=== PATIENT | female | born 1955 ===

== ENCOUNTER 2020-10-21 16:40 | Inpatient (IN) | payer OTHER ==
[~2020-10-21] VITALS: Ht 172.7 cm; Wt 154.8 kg
[2020-10-21] VITALS (12 sets, daily range): BP systolic 83–131; BP diastolic 32–89; BMI 51.9
[2020-10-21] MEDS ORDERED: COREG12.5 MG PO (17:42)
[2020-10-21] MEDS ORDERED: LASIX40 MG PO (17:43)
[2020-10-21] MEDS ORDERED: ELIQUIS5 MG PO (17:43)
[2020-10-21] MEDS ORDERED: LOTREL 5/10 MG1 CAP PO (17:44)
[2020-10-21] MEDS ORDERED: POTASSIUM CHLO10 ME1 PO (17:44)
[2020-10-21 18:36] LABS: BASOPHILS 0.1 % (0-2); EOSINOPHILS 0 % (0-7); HEMATOCRIT 35.9 % (36.0-48.0); HEMOGLOBIN 11.7 g/dL (12-16); LYMPHOCYTES 1.4 % (15-50); MCH 29.4 pg (26.0-34.0); MCHC 32.6 g/dL (31.0-37.0); MCV 90.2 fL (80.0-100.0); MEAN PLATELET VOLUME 7.5 fL (7.4-10.4); MONOCYTES 7.2 % (2-11); NEUTROPHILS 91.3 % (40-80); PLATELET COUNT 220 10x3/uL (130-400); RBC 3.98 10x6/uL (4.00-5.40); RDW 14.3 % (11.5-14.5); WBC 12.1 10x3/uL (4.8-10.8)
[2020-10-21 18:48] LABS: CALC OSMOLALITY 291 mosm/kg (275-300); CALCIUM 7.8 mg/dL (8.5-10.1); CARBON DIOXIDE 28.9 mmol/L (21.0-32.0); CHLORIDE - SERUM 106 mmol/L (98-107); CREATININE - SERUM 0.7 mg/dL (0.6-1.3); GLUCOSE 204 mg/dL (74-106); POTASSIUM - SERUM 5.5 mmol/L (3.5-5.1); SODIUM 138 mmol/L (136-145); UREA NITROGEN 40 mg/dL (7-18); eGFR NON AFRICAN AMERICAN 90 mL/min (90-120)
[2020-10-21 18:56] LABS: APTT 26.9 SECONDS (22.8-39.4); INR 1.58 (0.85-1.17); PROTIME 17.5 SECONDS (11.6-15.0)
[2020-10-21 19:02] LABS: MAGNESIUM - SERUM 2.4 mg/dL (1.8-2.4); PRO BNP 599 pg/mL (0-125)
--- NOTE | 2020-10-21 21:21 | NUR ---
CVP IS 18
--- NOTE | 2020-10-21 22:00 | NUR ---
PT ZAVALETA CHANGED, LIGHT BLOOD NOTED FROM VAGINAL AREA. MALCOLM HAZEL NOTIFIED, HE WANTS DAYSHIFT TO NOTIFY PROVIDER IN AM
--- NOTE | 2020-10-21 23:07 | NUR ---
DR. BENNY POOL FOR ELEVATED K+
--- NOTE | 2020-10-21 23:21 | NUR ---
SPOKE WITH DR. ZAPATA REGARDING ELEVATED K+ SEE MAR FOR ORDERS.
[2020-10-22] VITALS (24 sets, daily range): BP systolic 122–159; BP diastolic 68–94; BMI 51.8
--- NOTE | 2020-10-22 00:36 | NUR ---
TURNED DIPRIVAN OFF, PT UNAROUSABLE. VITALS STABLE
--- NOTE | 2020-10-22 03:20 | NUR ---
CVP IS 10
[2020-10-22 05:23] LABS: C-REACTIVE PROTEIN 0.9 mg/dL (0.0-0.9)
--- NOTE | 2020-10-22 07:10 | NUR ---
REPORT RECEIVED FROM OFF GOING NURSE AND PATIENT CARE ASSUMED. PATIENT LAYING IN BED ON BACK WITH EYES CLOSED ON VENT. ALL LINES , TUBES CHECKED AND PATENT. ZAVALETA INTACT DRAINING YELLOW URINE TO GRAVITY BAG. VSS. WILL CONTINUE WITH PLAN OF CARE. SR UP X 2 BED IN LOW POSITION AND CALL LIGHT IN REACH.
--- NOTE | 2020-10-22 10:15 | NUR ---
DR BENNY VANCE. NEW ORDERS RECEIVED. PATIENT IS STABLE AND VSS. WILL CONTINUE TO MONITOR. SR UPX 2 BED IN LOW POSITION AND CALL LIGHT IN REACH.
[2020-10-22 10:45] LABS: CALC OSMOLALITY 289 mosm/kg (275-300); CALCIUM 8.2 mg/dL (8.5-10.1); CARBON DIOXIDE 25.2 mmol/L (21.0-32.0); CHLORIDE - SERUM 105 mmol/L (98-107); CREATININE - SERUM 0.7 mg/dL (0.6-1.3); GLUCOSE 183 mg/dL (74-106); POTASSIUM - SERUM 5.7 mmol/L (3.5-5.1); SODIUM 137 mmol/L (136-145); UREA NITROGEN 42 mg/dL (7-18); eGFR NON AFRICAN AMERICAN 90 mL/min (90-120)
--- NOTE | 2020-10-22 13:12 | NUR ---
PATIENTS DTR WES CALLED AND GAVE CORRECT SECURITY CODE. GAVE UPDATE AND ANSWERED QUESTIONS TO SATISFACTION.
--- NOTE | 2020-10-22 17:30 | NUR ---
PATIENT HAD COMPLETE BATH AND LINEN CHANGE. PATIENT IS STABLE AND VSS. WILL CONTINUE TO MONITOR. SR UP X 2 BED IN LOW POSITION AND CALL LIGHT IN REACH.
[2020-10-22 18:14] LABS: BASOPHILS 0.2 % (0-2); EOSINOPHILS 0 % (0-7); HEMATOCRIT 36.7 % (36.0-48.0); HEMOGLOBIN 11.9 g/dL (12-16); LYMPHOCYTES 1.2 % (15-50); MCH 29.4 pg (26.0-34.0); MCHC 32.3 g/dL (31.0-37.0); MCV 90.8 fL (80.0-100.0); MEAN PLATELET VOLUME 7.7 fL (7.4-10.4); MONOCYTES 4.7 % (2-11); NEUTROPHILS 93.9 % (40-80); PLATELET COUNT 211 10x3/uL (130-400); RBC 4.04 10x6/uL (4.00-5.40); RDW 14.1 % (11.5-14.5); WBC 14.2 10x3/uL (4.8-10.8)
[2020-10-22 18:27] LABS: CALC OSMOLALITY 292 mosm/kg (275-300); CALCIUM 8.4 mg/dL (8.5-10.1); CARBON DIOXIDE 30.1 mmol/L (21.0-32.0); CHLORIDE - SERUM 105 mmol/L (98-107); CREATININE - SERUM 0.7 mg/dL (0.6-1.3); GLUCOSE 200 mg/dL (74-106); POTASSIUM - SERUM 5.3 mmol/L (3.5-5.1); SODIUM 137 mmol/L (136-145); UREA NITROGEN 48 mg/dL (7-18); eGFR NON AFRICAN AMERICAN 90 mL/min (90-120)
[2020-10-23] VITALS (24 sets, daily range): BP systolic 123–161; BP diastolic 68–95
[2020-10-23 04:29] LABS: BASOPHILS 0.1 % (0-2); EOSINOPHILS 0 % (0-7); HEMATOCRIT 33.9 % (36.0-48.0); HEMOGLOBIN 11.2 g/dL (12-16); LYMPHOCYTES 1.4 % (15-50); MCHC 33.2 g/dL (31.0-37.0); MCV 90.2 fL (80.0-100.0); MEAN PLATELET VOLUME 7.8 fL (7.4-10.4); MONOCYTES 5.2 % (2-11); NEUTROPHILS 93.3 % (40-80); PLATELET COUNT 181 10x3/uL (130-400); RBC 3.75 10x6/uL (4.00-5.40); RDW 14.3 % (11.5-14.5); WBC 11.8 10x3/uL (4.8-10.8)
[2020-10-23 04:39] LABS: APTT 27.2 SECONDS (22.8-39.4); INR 1.39 (0.85-1.17); PROTIME 15.9 SECONDS (11.6-15.0)
[2020-10-23 04:48] LABS: ALKALINE PHOSPHATASE 67 U/L (30-120); ALT (SGPT) 28 U/L (10-68); BILIRUBIN - TOTAL 0.65 mg/dL (0.2-1.3); CALC OSMOLALITY 295 mosm/kg (275-300); CARBON DIOXIDE 30.3 mmol/L (21.0-32.0); CHLORIDE - SERUM 105 mmol/L (98-107); CREATININE - SERUM 0.6 mg/dL (0.6-1.3); GLUCOSE 201 mg/dL (74-106); MAGNESIUM - SERUM 2.4 mg/dL (1.8-2.4); PHOSPHOROUS 3.9 mg/dL (2.5-4.9); PROTEIN - SERUM 5.4 g/dL (6.4-8.2); SODIUM 139 mmol/L (136-145); UREA NITROGEN 45 mg/dL (7-18); eGFR NON AFRICAN AMERICAN > 90 mL/min (90-120)
--- NOTE | 2020-10-23 05:22 | NUR ---
I have reviewed this patient and I concur with the Shift Assessment completed by the Licensed Practical Nurse today this shift.
--- NOTE | 2020-10-23 11:23 | NUR ---
LATE ENTRY: PT BROUGHT TO CT FOR POSSIBLE CHEST TUBE PLACEMENT ORDERED BY DR PULIDO. PT WAS SCANNED IN CT AND DR FLORENCE REVIEWED FILMS AND DETERMINED ANOTHER CHEST TUBE WAS NOT NEEDED. PT WAS THEN TAKEN BACK TO ICU.
--- NOTE | 2020-10-23 19:45 | NUR ---
REC'D REPORT AND CARE ASSUMED, REC'D PT ON VENT VIA 7.5 ETT TAPED SECURELY AT 22CM LIPLINE, SEE FLOWSHEET FOR VENT SETTINGS, PT OPENS EYES WITH CONTINUED STIMULI OF CALLING HER NAME, DOES NOT TRACK OR FOLLOW COMMANDS, RIJTL DRSG CDI WITH NS @ 10CC/HR AND FENTANYL @ 100MCG/HR OR 2CC, GENERALIZED EDEMA, OGT CLAMPED, AWAITING TF PUMP, ZAVALETA PATENT DRAINING YELLOW URINE, PPP, SCDS INTACT, SR UP X 2, BILAT SOFT WRIST RESTRAINTS INTACT, BED IN LOW POSITION.
--- NOTE | 2020-10-23 21:00 | NUR ---
RETURNED PT'S DAUGHTER IN LAWS CALL, QUESTIONS ANSWERED AND UPDATE PROVIDED
[2020-10-24] VITALS (25 sets, daily range): BP systolic 130–173; BP diastolic 62–123
[2020-10-24 04:25] LABS: BASOPHILS 0.2 % (0-2); EOSINOPHILS 0 % (0-7); HEMATOCRIT 36.9 % (36.0-48.0); HEMOGLOBIN 12.1 g/dL (12-16); LYMPHOCYTES 1.6 % (15-50); MCH 29.5 pg (26.0-34.0); MCHC 32.9 g/dL (31.0-37.0); MCV 89.6 fL (80.0-100.0); MEAN PLATELET VOLUME 7.8 fL (7.4-10.4); MONOCYTES 4.4 % (2-11); NEUTROPHILS 93.8 % (40-80); PLATELET COUNT 193 10x3/uL (130-400); RBC 4.12 10x6/uL (4.00-5.40); RDW 14.1 % (11.5-14.5)
[2020-10-24 04:52] LABS: ALBUMIN 2.1 g/dL (3.4-5.0); ALKALINE PHOSPHATASE 77 U/L (30-120); ALT (SGPT) 32 U/L (10-68); BILIRUBIN - TOTAL 0.99 mg/dL (0.2-1.3); CALC OSMOLALITY 290 mosm/kg (275-300); CALCIUM 8.2 mg/dL (8.5-10.1); CARBON DIOXIDE 30.5 mmol/L (21.0-32.0); CHLORIDE - SERUM 104 mmol/L (98-107); CREATININE - SERUM 0.7 mg/dL (0.6-1.3); GLUCOSE 175 mg/dL (74-106); MAGNESIUM - SERUM 2.2 mg/dL (1.8-2.4); PHOSPHOROUS 3.5 mg/dL (2.5-4.9); POTASSIUM - SERUM 4.9 mmol/L (3.5-5.1); PROTEIN - SERUM 5.8 g/dL (6.4-8.2); SODIUM 138 mmol/L (136-145); UREA NITROGEN 42 mg/dL (7-18); eGFR NON AFRICAN AMERICAN 90 mL/min (90-120)
[2020-10-24 04:55] LABS: WBC 14.8 10x3/uL (4.8-10.8)
--- NOTE | 2020-10-24 10:26 | NUR ---
Nutrition follow-up: Intubated, sedated Pulmocare @ 10 ml/hr with increase to 30 ml/hr x 6 days; then increase to goal rate of 40 ml/hr Labs reviewed Wt: 344# RDN recommends increasing Pulmocare to goal rate of 55 ml/hr to better meet pts increased nutritional needs. RDN will monitor patients progress toward nutrition goals in 3-4 days.
--- NOTE | 2020-10-24 16:13 | NUR ---
NO RESPONSE TO REQUEST OR TO PAIN IN EXTREMITIES AND FAMILY AWARE OF THIS. HAVE STARTED PROPOFOL EARLY AM PATIENT HAD EYES OPEN AND DR. ZAPATA WANTS HER TO SLEEP.DOWN TO 70 PERCENT ON VENT.
--- NOTE | 2020-10-24 19:40 | NUR ---
REPORT REC'D AND CARE ASSUMED, REC'D PT ON VENT VIA 7.5 ETT TAPED @ 22CM LIPLINE,SEE FLOWSHEET FOR VENT SETTINGS, PT DOES NOT AWAKEN TO VERBAL OR TACTILE STIMULI, CM-CAF AT 94, BP STABLE, RIJTL NS @ 10CC/HR, DIPRIVAN 10MCG/KG/MIN OR 9CC/HR, AND FENTANYL @ 100MCG/HR, GENERALIZED EDEMA, ZAVALETA WITH RAMY COLORED URINE, PPP, BILAT SOFT WRIST RESTRAINTS INTACT.
[2020-10-25] VITALS (13 sets, daily range): BP systolic 133–151; BP diastolic 72–92
[2020-10-25 05:49] LABS: BASOPHILS 0.3 % (0-2); EOSINOPHILS 0 % (0-7); HEMATOCRIT 34.6 % (36.0-48.0); HEMOGLOBIN 11.6 g/dL (12-16); LYMPHOCYTES 1.7 % (15-50); MCH 30.1 pg (26.0-34.0); MCHC 33.6 g/dL (31.0-37.0); MCV 89.6 fL (80.0-100.0); MEAN PLATELET VOLUME 7.6 fL (7.4-10.4); MONOCYTES 5.1 % (2-11); NEUTROPHILS 92.9 % (40-80); RBC 3.86 10x6/uL (4.00-5.40); RDW 14.2 % (11.5-14.5); WBC 12.2 10x3/uL (4.8-10.8)
[2020-10-25 05:52] LABS: PLATELET COUNT 154 10x3/uL (130-400)
[2020-10-25 06:08] LABS: ALKALINE PHOSPHATASE 86 U/L (30-120); BILIRUBIN - TOTAL 0.89 mg/dL (0.2-1.3); CALC OSMOLALITY 289 mosm/kg (275-300); CARBON DIOXIDE 31.5 mmol/L (21.0-32.0); CHLORIDE - SERUM 102 mmol/L (98-107); CREATININE - SERUM 0.6 mg/dL (0.6-1.3); GLUCOSE 198 mg/dL (74-106); MAGNESIUM - SERUM 2.2 mg/dL (1.8-2.4); PHOSPHOROUS 3.4 mg/dL (2.5-4.9); POTASSIUM - SERUM 4.8 mmol/L (3.5-5.1); PROTEIN - SERUM 5.4 g/dL (6.4-8.2); SODIUM 137 mmol/L (136-145); UREA NITROGEN 41 mg/dL (7-18); eGFR NON AFRICAN AMERICAN > 90 mL/min (90-120)
[2020-10-25 06:12] LABS: ALT (SGPT) 70 U/L (10-68)
--- NOTE | 2020-10-25 19:30 | NUR ---
REPORT REC'D AND CARE ASSUMED, REC'D PT ON VENT VIA 7.5ETT TAPED SECURELY AT THE 22CM LIPLINE, SEE FLOW SHEET FOR VENT SETTINGS, PT DOES NOT AROUSE TO VERBAL OR TACTILE STIMULI, RIJTL DRSG CDI, NS @ 10CC/HR, DIPRIVAN @ 10MCG/KG/MIN OR 9CC/HR, FENTANYL @ 150MCG/HR , AND NEXTERONE @ 0.5MG/MIN OR 16.7CC/HR, OGT TAPED SECURELY TO ETT, PLACEMENT VERIFIED VIA SM AIR BOLUS AUSCULTATED OVER EPIGASTRIM, PULMOCARE @ 30CC/HR WITH 50CC Q4HOUR FLUSH, RIGHT LATERAL CT TO 20CM H2O SUCTION, SANGUINOUS DRAINAGE PRESENT IN TUBING, ZAVALETA PATENT DRAINING RAMY COLORED URINE, SCDS INTACT AND ON, SR UP X 2, PPP, BILAT SOFT WRIST RESTRAINTS INTACT.
[2020-10-26] VITALS (24 sets, daily range): BP systolic 111–152; BP diastolic 62–93
[2020-10-26 04:58] LABS: HEMATOCRIT 36.3 % (36.0-48.0); HEMOGLOBIN 12.1 g/dL (12-16); LYMPHOCYTE ABS# 0.94 10x3/uL (1.18-3.74); MCH 30.2 pg (26.0-34.0); MCHC 33.3 g/dL (31.0-37.0); MCV 90.5 fL (80.0-100.0); MEAN PLATELET VOLUME 9.8 fL (7.4-10.4); NEUTROPHIL ABS# 15.78 10x3/uL (1.56-6.13); PLATELET COUNT 148 10x3/uL (130-400); RBC 4.01 10x6/uL (4.00-5.40); RDW 13.3 % (11.5-14.5)
[2020-10-26 04:59] LABS: WBC 17.2 10x3/uL (4.8-10.8)
[2020-10-26 05:08] LABS: ALBUMIN 2.1 g/dL (3.4-5.0); ALKALINE PHOSPHATASE 97 U/L (30-120); ALT (SGPT) 71 U/L (10-68); BILIRUBIN - TOTAL 0.78 mg/dL (0.2-1.3); CALC OSMOLALITY 287 mosm/kg (275-300); CARBON DIOXIDE 34.2 mmol/L (21.0-32.0); CHLORIDE - SERUM 100 mmol/L (98-107); CREATININE - SERUM 0.7 mg/dL (0.6-1.3); GLUCOSE 214 mg/dL (74-106); MAGNESIUM - SERUM 2.2 mg/dL (1.8-2.4); PHOSPHOROUS 3.5 mg/dL (2.5-4.9); PROTEIN - SERUM 5.4 g/dL (6.4-8.2); SODIUM 136 mmol/L (136-145); UREA NITROGEN 41 mg/dL (7-18); eGFR NON AFRICAN AMERICAN 90 mL/min (90-120)
[2020-10-26 05:13] LABS: LYMPHOCYTES 11 % (15-50); NEUTROPHILS 89 % (40-80); PLATELET ESTIMATE NORMAL
[2020-10-27] VITALS (24 sets, daily range): BP systolic 111–172; BP diastolic 58–148
[2020-10-27 05:19] LABS: BASOPHILS 0.1 % (0-2); EOSINOPHILS 0 % (0-7); HEMATOCRIT 36.5 % (36.0-48.0); HEMOGLOBIN 12.2 g/dL (12-16); LYMPHOCYTES 1.1 % (15-50); MCHC 33.4 g/dL (31.0-37.0); MCV 89.8 fL (80.0-100.0); MEAN PLATELET VOLUME 8.2 fL (7.4-10.4); MONOCYTES 5.7 % (2-11); NEUTROPHILS 93.1 % (40-80); PLATELET COUNT 144 10x3/uL (130-400); RBC 4.06 10x6/uL (4.00-5.40); WBC 17.3 10x3/uL (4.8-10.8)
[2020-10-27 05:55] LABS: ALBUMIN 2.2 g/dL (3.4-5.0); ALKALINE PHOSPHATASE 98 U/L (30-120); ALT (SGPT) 70 U/L (10-68); BILIRUBIN - TOTAL 0.84 mg/dL (0.2-1.3); CALC OSMOLALITY 284 mosm/kg (275-300); CALCIUM 8.1 mg/dL (8.5-10.1); CARBON DIOXIDE 31.1 mmol/L (21.0-32.0); CHLORIDE - SERUM 100 mmol/L (98-107); CREATININE - SERUM 0.5 mg/dL (0.6-1.3); GLUCOSE 201 mg/dL (74-106); MAGNESIUM - SERUM 2.2 mg/dL (1.8-2.4); PHOSPHOROUS 3.1 mg/dL (2.5-4.9); POTASSIUM - SERUM 4.8 mmol/L (3.5-5.1); PROTEIN - SERUM 5.5 g/dL (6.4-8.2); SODIUM 135 mmol/L (136-145); UREA NITROGEN 37 mg/dL (7-18); eGFR NON AFRICAN AMERICAN > 90 mL/min (90-120)
--- NOTE | 2020-10-27 12:32 | NUR ---
Nutrition reassessment: Pt discussed during IDT team rounds. Intubated, sedated with propofol @ 15 mcg Pulmocare infusing via OGT @ 30 ml/hr. Labs reviewed Ht: 5'8" Wt: 353# Estimated needs based on AdjBW of 93 [id number] kcal (25-30 kcal/kg AdjBW) 93-112 gm protein (1.0-1.2 gm/kg AdjBW) 5825-6958 ml fluid or per MD Nutrition diagnosis: Inadequate enteral feeding R/T intubation AEB TF only meeting ~42% of estimated needs at this time. Nutrition goals: - TF will increase to goal rate of 55 ml/hr within 24 hours - Meet est fluid needs without fluid overload - stable dry wt Nutrition interventions: TF @ goal rate of 55 ml/hr will provide (with propofol @ 15 mcg/kg/min): 2360 kcal, 83 gm protein. 84-101% estimated kcal needs; 74-89% estimated protein needs RDN will follow-up on pts progress toward nutrition goals in 2-3 days.
--- NOTE | 2020-10-27 12:52 | NUR ---
CHEST XRAY DONE AGAIN AND NOTE WHAT IS SAID IN REPORT. DR. PULIDO CALLED AND NOTIFIED AND HE SAID TO PULL TUBE AND PLACE BETADINE ON SITE AND DRESS WITH 4X4. DR. GARCIA NOTIFIED WHAT HE SAID TO DO.
[2020-10-28] VITALS (25 sets, daily range): BP systolic 133–191; BP diastolic 65–114
--- NOTE | 2020-10-28 10:02 | NUR ---
UNABLE TO RUN P/S TRIAL AT THIS TIME. PT SWITCHED OFF SEDATION AND HAS INCREASED HR 160'S. INCREASED BP 143/111. WILL TRY AGAIN LATER.
--- NOTE | 2020-10-28 12:10 | NUR ---
PATIENT DID NOT TOLERATE CPAP TRIAL HEART RATE ELEVATED EVEN THOUGH ON NEXTERONE. DR. GARCIA NOTIFIED AND PATIENT PLACED BACK ON VENT AND BACK ON SEDATION. BATH DONE AND LINEN CHANGE DONE.
[2020-10-29] VITALS (25 sets, daily range): BP systolic 138–176; BP diastolic 76–114
[2020-10-29 05:35] LABS: BASOPHILS 0 % (0-2); EOSINOPHILS 0 % (0-7); HEMATOCRIT 34.4 % (36.0-48.0); HEMOGLOBIN 11.6 g/dL (12-16); LYMPHOCYTES 1.3 % (15-50); MCH 30.4 pg (26.0-34.0); MCHC 33.8 g/dL (31.0-37.0); MCV 89.9 fL (80.0-100.0); MEAN PLATELET VOLUME 8.4 fL (7.4-10.4); NEUTROPHILS 94.7 % (40-80); PLATELET COUNT 118 10x3/uL (130-400); RBC 3.83 10x6/uL (4.00-5.40); RDW 14.3 % (11.5-14.5); WBC 14.2 10x3/uL (4.8-10.8)
[2020-10-29 05:53] LABS: ALKALINE PHOSPHATASE 97 U/L (30-120); ALT (SGPT) 66 U/L (10-68); BILIRUBIN - TOTAL 0.86 mg/dL (0.2-1.3); CALC OSMOLALITY 281 mosm/kg (275-300); CALCIUM 7.8 mg/dL (8.5-10.1); CARBON DIOXIDE 31.3 mmol/L (21.0-32.0); CHLORIDE - SERUM 97 mmol/L (98-107); CREATININE - SERUM 0.5 mg/dL (0.6-1.3); GLUCOSE 230 mg/dL (74-106); POTASSIUM - SERUM 4.9 mmol/L (3.5-5.1); SODIUM 133 mmol/L (136-145); UREA NITROGEN 37 mg/dL (7-18); eGFR NON AFRICAN AMERICAN > 90 mL/min (90-120)
--- NOTE | 2020-10-29 09:30 | NUR ---
DR. GARCIA HERE FOR ROUNDS. ORDERS RECEIVED. PROPOFOL ONLY TURNED OFF FOR SEDATION VACATION.
--- NOTE | 2020-10-29 10:00 | NUR ---
WAKES UP, OPENS EYES, BUT HR GOES UP TO 192. PROPOFOL TURNED BACK ON AND SBT DEFERRED.
--- NOTE | 2020-10-29 10:13 | NUR ---
ATTEMPTED TO RUN PRESSURE SUPPORT TRIAL AT THIS TIME. PT HAD INCREASED HR 177- 180. WILL ATTEMPT TRIAL AGAIN LATER IF A-FIB BECOMES MORE CONTROLLED.
--- NOTE | 2020-10-29 12:32 | NUR ---
DR. GARCIA CALLS TO CHECK ON SBT. REPORTED SHE FAILED SEDATION VACATION.
--- NOTE | 2020-10-29 13:44 | NUR ---
Nutrition follow-up: Pt discussed during IDT team rounds. Intubated, sedated with propofol @ 18 mcg/kg/min labs reviewed Pt failed PST trials Pulmocare now infusing @ goal rate of 55 ml/hr with 50 ml H2O flush q 4 hours per physiciain Wt: 349# Pt tolerating TF at goal rate per nurse. RDN will reassess pt in 2-3 days.
--- NOTE | 2020-10-29 18:03 | NUR ---
UPDATE GIVEN TO WES, DAUGHTER. REPORTED SHE WILL BE OUT OF ISOLATION TUESDAY. SHE SAYS SHE WILL BE HERE TO SEE HER TUESDAY.
--- NOTE | 2020-10-29 20:44 | NUR ---
10/29/20 1900 RECEIVED BED SIDE SHIFT REPORT, NO DISTRESS OR NEEDS NOTED AT THIS TIME. INITAIL ASSESSMENT COMPLETED; SEE ASSESSMENT. RESD REPOSITIONED AND TURNED. CVP ZEROED AND FLUSED READING OF 2.
[2020-10-30] VITALS (24 sets, daily range): BP systolic 110–137; BP diastolic 57–100
[2020-10-30 05:20] LABS: BASOPHILS 0.3 % (0-2); EOSINOPHILS 0 % (0-7); HEMATOCRIT 31.6 % (36.0-48.0); HEMOGLOBIN 10.8 g/dL (12-16); LYMPHOCYTES 0.9 % (15-50); MCH 30.7 pg (26.0-34.0); MCHC 34.2 g/dL (31.0-37.0); MCV 89.9 fL (80.0-100.0); MEAN PLATELET VOLUME 8.3 fL (7.4-10.4); MONOCYTES 3.7 % (2-11); NEUTROPHILS 95.1 % (40-80); PLATELET COUNT 109 10x3/uL (130-400); RBC 3.51 10x6/uL (4.00-5.40); RDW 14.3 % (11.5-14.5); WBC 15.6 10x3/uL (4.8-10.8)
[2020-10-30 05:57] LABS: ALBUMIN 1.9 g/dL (3.4-5.0); ALKALINE PHOSPHATASE 88 U/L (30-120); ALT (SGPT) 63 U/L (10-68); BILIRUBIN - TOTAL 0.72 mg/dL (0.2-1.3); CALC OSMOLALITY 280 mosm/kg (275-300); CALCIUM 7.6 mg/dL (8.5-10.1); CARBON DIOXIDE 30.5 mmol/L (21.0-32.0); CHLORIDE - SERUM 96 mmol/L (98-107); CREATININE - SERUM 0.6 mg/dL (0.6-1.3); GLUCOSE 218 mg/dL (74-106); POTASSIUM - SERUM 4.9 mmol/L (3.5-5.1); PROTEIN - SERUM 4.8 g/dL (6.4-8.2); SODIUM 132 mmol/L (136-145); UREA NITROGEN 37 mg/dL (7-18); eGFR NON AFRICAN AMERICAN > 90 mL/min (90-120)
--- NOTE | 2020-10-30 10:36 | NUR ---
DR. RADHA BAEZ. REPORTED AGAIN, HR WENT INTO 160'S WITH DIPRIVAN OFF. SBT HELD. OTHER ORDERS RECEIVED.
--- NOTE | 2020-10-30 21:50 | NUR ---
10/30/20 1900 received bedside shift report, no distress or needs noted at this time. Inital assessment completed; see assessment.
[2020-10-31] VITALS (24 sets, daily range): BP systolic 96–149; BP diastolic 49–83
[2020-10-31 04:50] LABS: BASOPHILS 0.1 % (0-2); EOSINOPHILS 0.1 % (0-7); HEMOGLOBIN 9.8 g/dL (12-16); LYMPHOCYTES 1.8 % (15-50); MCH 30.4 pg (26.0-34.0); MCHC 33.6 g/dL (31.0-37.0); MCV 90.3 fL (80.0-100.0); MEAN PLATELET VOLUME 8.5 fL (7.4-10.4); MONOCYTES 4.5 % (2-11); NEUTROPHILS 93.5 % (40-80); PLATELET COUNT 99 10x3/uL (130-400); RBC 3.21 10x6/uL (4.00-5.40); RDW 14.7 % (11.5-14.5); WBC 11.9 10x3/uL (4.8-10.8)
[2020-10-31 04:55] LABS: PLATELET ESTIMATE DECREASED
[2020-10-31 05:18] LABS: ALKALINE PHOSPHATASE 83 U/L (30-120); ALT (SGPT) 68 U/L (10-68); BILIRUBIN - TOTAL 0.67 mg/dL (0.2-1.3); CALC OSMOLALITY 276 mosm/kg (275-300); CALCIUM 7.3 mg/dL (8.5-10.1); CARBON DIOXIDE 32.8 mmol/L (21.0-32.0); CHLORIDE - SERUM 97 mmol/L (98-107); CREATININE - SERUM 0.5 mg/dL (0.6-1.3); GLUCOSE 176 mg/dL (74-106); POTASSIUM - SERUM 4.7 mmol/L (3.5-5.1); PROTEIN - SERUM 4.4 g/dL (6.4-8.2); SODIUM 132 mmol/L (136-145); UREA NITROGEN 36 mg/dL (7-18); eGFR NON AFRICAN AMERICAN > 90 mL/min (90-120)
--- NOTE | 2020-10-31 13:04 | NUR ---
Nutrition follow-up: Remains intubated; sedation off at this time. Pulmocare infusing @ goal rate of 55 ml/hr Labs reviewed Wt: 349# Lasix increased to 40 ml BID RDN will monitor patients progress toward nutrition goals in 3-4 days.
[2020-11-01] VITALS (25 sets, daily range): BP systolic 88–122; BP diastolic 44–66
[2020-11-01 08:06] LABS: ALBUMIN 1.8 g/dL (3.4-5.0); ALKALINE PHOSPHATASE 85 U/L (30-120); ALT (SGPT) 63 U/L (10-68); BILIRUBIN - TOTAL 0.54 mg/dL (0.2-1.3); CALC OSMOLALITY 275 mosm/kg (275-300); CALCIUM 7.6 mg/dL (8.5-10.1); CARBON DIOXIDE 31.5 mmol/L (21.0-32.0); CHLORIDE - SERUM 96 mmol/L (98-107); CREATININE - SERUM 0.5 mg/dL (0.6-1.3); GLUCOSE 172 mg/dL (74-106); POTASSIUM - SERUM 3.9 mmol/L (3.5-5.1); PROTEIN - SERUM 4.3 g/dL (6.4-8.2); SODIUM 131 mmol/L (136-145); UREA NITROGEN 39 mg/dL (7-18); eGFR NON AFRICAN AMERICAN > 90 mL/min (90-120)
[2020-11-01 08:16] LABS: BASOPHILS 0.1 % (0-2); EOSINOPHILS 0.1 % (0-7); HEMATOCRIT 26.5 % (36.0-48.0); HEMOGLOBIN 9.1 g/dL (12-16); LYMPHOCYTES 2.1 % (15-50); MCH 31.1 pg (26.0-34.0); MCHC 34.4 g/dL (31.0-37.0); MCV 90.2 fL (80.0-100.0); MEAN PLATELET VOLUME 8.5 fL (7.4-10.4); NEUTROPHILS 92.7 % (40-80); PLATELET COUNT 81 10x3/uL (130-400); RBC 2.94 10x6/uL (4.00-5.40); RDW 15.1 % (11.5-14.5); WBC 10.9 10x3/uL (4.8-10.8)
--- NOTE | 2020-11-01 17:32 | NUR ---
0700 BEDSIDE SHIFT REPORT RECIEVED AND CARE ASSUMED OF PATIENT... SEE FLOW SHEET FOR SHIFT ASSESMENT FIINDINGS... 0930 DR MEJÍA IN TO SEE PATIENT.. SEDATION TURNED OFF AT THIS TIME FOR SBT.. 0945 SBT CEASED WHEN HR [phone] BS DONE HR BACK TO 94 1005 DAUGHTER IS AT BEDSIDE UPDATE IS GIVEN.. 1030 DR GARCIA IN TO SEE PATIENT AND UPDATE GIVEN HE DID SPEAK WITH THE DAUGHTER RE TRACH AND PEG .. POSSIBLY THIS NEXT WEEK, DAUGHTER TO SPEAK WITH HER BROTHER 1130 DR ONOFRE IN TO SEE PZTIENT.. 1200 CHG BATH GIVEN 1500 I AND O DONE..
[2020-11-02] VITALS (24 sets, daily range): BP systolic 89–118; BP diastolic 45–68
[2020-11-02 03:54] LABS: BASOPHILS 0.1 % (0-2); EOSINOPHILS 0.1 % (0-7); HEMATOCRIT 24.5 % (36.0-48.0); HEMOGLOBIN 8.5 g/dL (12-16); LYMPHOCYTES 2.8 % (15-50); MCH 31.2 pg (26.0-34.0); MCHC 34.6 g/dL (31.0-37.0); MCV 90.2 fL (80.0-100.0); MEAN PLATELET VOLUME 8.2 fL (7.4-10.4); MONOCYTES 4.7 % (2-11); NEUTROPHILS 92.3 % (40-80); PLATELET COUNT 77 10x3/uL (130-400); RBC 2.72 10x6/uL (4.00-5.40); RDW 14.8 % (11.5-14.5); WBC 8.4 10x3/uL (4.8-10.8)
[2020-11-02 04:06] LABS: ALBUMIN 1.7 g/dL (3.4-5.0); ALKALINE PHOSPHATASE 65 U/L (30-120); ALT (SGPT) 60 U/L (10-68); BILIRUBIN - TOTAL 0.67 mg/dL (0.2-1.3); CALC OSMOLALITY 271 mosm/kg (275-300); CALCIUM 7.4 mg/dL (8.5-10.1); CARBON DIOXIDE 33.9 mmol/L (21.0-32.0); CHLORIDE - SERUM 96 mmol/L (98-107); CREATININE - SERUM 0.5 mg/dL (0.6-1.3); GLUCOSE 129 mg/dL (74-106); PROTEIN - SERUM 4.2 g/dL (6.4-8.2); SODIUM 130 mmol/L (136-145); UREA NITROGEN 37 mg/dL (7-18); eGFR NON AFRICAN AMERICAN > 90 mL/min (90-120)
[2020-11-02 04:32] LABS: PLATELET ESTIMATE DECREASED
--- NOTE | 2020-11-02 18:15 | NUR ---
0700 BEDSIDE SHIFT REPORT RECIEVED AND CARE ASSUMED OF THE PATIENT.. SEE FLOW SHEET FOR SHIFT ASSESMENT FINDINGS.. 0830 MEDS GIVEN.. 0930 DR GARCIA IN TO SEE PATIENT 1030 ATTEMPT TO TURN OFF SEDATION AND DO SBT .. 1045 HR INCREASED TO 150-170 AFTER SEDATION OFF ... SEDATION TURNED BACK ON.. 1115 PATIENT IS SETTLED AND HR BACK TO SR IN THE 90s 1330 COMPLETE CHG BATH AND LINEN CHANGE DONE.. 1600 WIHTOUT CHANGES..
[2020-11-03] VITALS (27 sets, daily range): BP systolic 107–146; BP diastolic 42–80
[2020-11-03 04:42] LABS: BASOPHILS 0.2 % (0-2); EOSINOPHILS 0.2 % (0-7); HEMATOCRIT 22.9 % (36.0-48.0); HEMOGLOBIN 7.9 g/dL (12-16); LYMPHOCYTES 3.2 % (15-50); MCH 31.2 pg (26.0-34.0); MCHC 34.7 g/dL (31.0-37.0); MCV 89.9 fL (80.0-100.0); MEAN PLATELET VOLUME 8.1 fL (7.4-10.4); MONOCYTES 4.3 % (2-11); NEUTROPHILS 92.1 % (40-80); PLATELET COUNT 78 10x3/uL (130-400); RBC 2.55 10x6/uL (4.00-5.40); RDW 15.4 % (11.5-14.5); WBC 6.5 10x3/uL (4.8-10.8)
[2020-11-03 04:47] LABS: PLATELET ESTIMATE DECREASED
[2020-11-03 04:52] LABS: ALBUMIN 1.6 g/dL (3.4-5.0); ALKALINE PHOSPHATASE 58 U/L (30-120); ALT (SGPT) 60 U/L (10-68); CALC OSMOLALITY 272 mosm/kg (275-300); CALCIUM 7.4 mg/dL (8.5-10.1); CARBON DIOXIDE 32.8 mmol/L (21.0-32.0); CHLORIDE - SERUM 95 mmol/L (98-107); CREATININE - SERUM 0.4 mg/dL (0.6-1.3); GLUCOSE 139 mg/dL (74-106); POTASSIUM - SERUM 3.8 mmol/L (3.5-5.1); SODIUM 131 mmol/L (136-145); UREA NITROGEN 35 mg/dL (7-18); eGFR NON AFRICAN AMERICAN > 90 mL/min (90-120)
--- NOTE | 2020-11-03 08:30 | NUR ---
SPOKE WITH FAMILY OVER THE PHONE. UDATED ON POC. VERBALIZED UNDERSTANDING.
--- NOTE | 2020-11-03 13:08 | NUR ---
Nutrition reassessment: Pt discussed during IDT team rounds Intubated, sedated with propofol @ 20 mcg/kg/min Pulmocare continues @ 55 ml/hr per OGT Labs reviewed Discussing trach, PEG soon Estimated needs, nutrition diagnosis, goals, interventions remain the same as last reassessment on 10/27/20 RDN will follow-up on pts progress in 2-3 days.
[2020-11-04] VITALS (25 sets, daily range): BP systolic 96–139; BP diastolic 32–87
--- NOTE | 2020-11-04 01:29 | NUR ---
11/03/20 1900; Recieved pt in bed, sedated on vent. Bedside shift report given. No distress noted. VSS, pt revieving 2nd unit of PRBC, infusing without difficulty no adverse reactions noted. initial assessment completed see assessment.
[2020-11-04 04:19] LABS: BASOPHILS 0.2 % (0-2); EOSINOPHILS 0.1 % (0-7); LYMPHOCYTES 3.2 % (15-50); MCH 30.9 pg (26.0-34.0); MCHC 34.4 g/dL (31.0-37.0); MEAN PLATELET VOLUME 7.8 fL (7.4-10.4); NEUTROPHILS 91.5 % (40-80); PLATELET COUNT 64 10x3/uL (130-400); RDW 14.8 % (11.5-14.5); WBC 6.8 10x3/uL (4.8-10.8)
[2020-11-04 04:21] LABS: HEMATOCRIT 30.9 % (36.0-48.0); HEMOGLOBIN 10.6 g/dL (12-16); RBC 3.44 10x6/uL (4.00-5.40)
[2020-11-04 04:29] LABS: ALBUMIN 1.8 g/dL (3.4-5.0); ALKALINE PHOSPHATASE 75 U/L (30-120); ALT (SGPT) 65 U/L (10-68); BILIRUBIN - TOTAL 0.88 mg/dL (0.2-1.3); CALC OSMOLALITY 274 mosm/kg (275-300); CALCIUM 7.6 mg/dL (8.5-10.1); CARBON DIOXIDE 32.4 mmol/L (21.0-32.0); CHLORIDE - SERUM 95 mmol/L (98-107); CREATININE - SERUM 0.4 mg/dL (0.6-1.3); GLUCOSE 151 mg/dL (74-106); POTASSIUM - SERUM 3.7 mmol/L (3.5-5.1); PROTEIN - SERUM 4.5 g/dL (6.4-8.2); SODIUM 132 mmol/L (136-145); UREA NITROGEN 31 mg/dL (7-18); eGFR NON AFRICAN AMERICAN > 90 mL/min (90-120)
[2020-11-05] VITALS (25 sets, daily range): BP systolic 100–130; BP diastolic 54–90; Ht 172.7 cm; Wt 154.8 kg
[2020-11-05 06:04] LABS: ALBUMIN 1.6 g/dL (3.4-5.0); ALKALINE PHOSPHATASE 59 U/L (30-120); ALT (SGPT) 72 U/L (10-68); BILIRUBIN - TOTAL 1.03 mg/dL (0.2-1.3); CALC OSMOLALITY 271 mosm/kg (275-300); CALCIUM 7.5 mg/dL (8.5-10.1); CARBON DIOXIDE 33.1 mmol/L (21.0-32.0); CHLORIDE - SERUM 97 mmol/L (98-107); CREATININE - SERUM 0.4 mg/dL (0.6-1.3); GLUCOSE 104 mg/dL (74-106); POTASSIUM - SERUM 3.7 mmol/L (3.5-5.1); PROTEIN - SERUM 4.3 g/dL (6.4-8.2); SODIUM 132 mmol/L (136-145); UREA NITROGEN 31 mg/dL (7-18); eGFR NON AFRICAN AMERICAN > 90 mL/min (90-120)
[2020-11-05 06:11] LABS: BASOPHILS 0.2 % (0-2); EOSINOPHILS 0.3 % (0-7); HEMATOCRIT 29.2 % (36.0-48.0); HEMOGLOBIN 10.1 g/dL (12-16); LYMPHOCYTES 5.3 % (15-50); MCH 30.9 pg (26.0-34.0); MCHC 34.7 g/dL (31.0-37.0); MCV 89.1 fL (80.0-100.0); MEAN PLATELET VOLUME 7.7 fL (7.4-10.4); MONOCYTES 5.7 % (2-11); NEUTROPHILS 88.5 % (40-80); RBC 3.28 10x6/uL (4.00-5.40); RDW 14.7 % (11.5-14.5)
[2020-11-05 06:36] LABS: PLATELET COUNT 89 10x3/uL (130-400); WBC 4.9 10x3/uL (4.8-10.8)
--- NOTE | 2020-11-05 07:10 | NUR ---
REPORT RECEIVED FROM ENTERPRISE SERVICES MANAGER AND PATIENT CARFE ASSUMED. PATIENT LAYING IN BED ON BACK SEDATED ON VENT . VSS. CHECKED ALL LINES TUBES DRAIN PATENT. WILL CONTINUE WITH PLAN OF CARE. SR UP X 2 BED IN LOW POSITION AND CALL LIGHT IN REACH.
--- NOTE | 2020-11-05 10:00 | NUR ---
DR ZAPATA ON UNIT. NEW ORDERS RECEIVED.
[2020-11-05 14:03] LABS: PLATELET ESTIMATE DECREASED
[2020-11-05 14:04] LABS: ANISOCYTOSIS OCC; CRENATED CELLS 1+; HYPOCHROMASIA OCC
[2020-11-06] VITALS (29 sets, daily range): BP systolic 84–136; BP diastolic 49–78
[2020-11-06 04:44] LABS: BASOPHILS 0.3 % (0-2); EOSINOPHILS 0.1 % (0-7); HEMATOCRIT 28.4 % (36.0-48.0); HEMOGLOBIN 9.7 g/dL (12-16); LYMPHOCYTES 4.4 % (15-50); MCH 30.6 pg (26.0-34.0); MCHC 34.1 g/dL (31.0-37.0); MCV 89.8 fL (80.0-100.0); MEAN PLATELET VOLUME 7.5 fL (7.4-10.4); MONOCYTES 6.9 % (2-11); NEUTROPHILS 88.3 % (40-80); PLATELET COUNT 105 10x3/uL (130-400); RBC 3.17 10x6/uL (4.00-5.40); RDW 14.7 % (11.5-14.5); WBC 4.3 10x3/uL (4.8-10.8)
[2020-11-06 05:19] LABS: ALBUMIN 1.7 g/dL (3.4-5.0); ALKALINE PHOSPHATASE 70 U/L (30-120); ALT (SGPT) 82 U/L (10-68); BILIRUBIN - TOTAL 1.04 mg/dL (0.2-1.3); CALC OSMOLALITY 270 mosm/kg (275-300); CALCIUM 7.6 mg/dL (8.5-10.1); CARBON DIOXIDE 31.5 mmol/L (21.0-32.0); CHLORIDE - SERUM 95 mmol/L (98-107); CREATININE - SERUM 0.4 mg/dL (0.6-1.3); GLUCOSE 116 mg/dL (74-106); PROTEIN - SERUM 4.3 g/dL (6.4-8.2); SODIUM 131 mmol/L (136-145); UREA NITROGEN 32 mg/dL (7-18); eGFR NON AFRICAN AMERICAN > 90 mL/min (90-120)
--- NOTE | 2020-11-06 08:45 | NUR ---
heart rate 150-165. lopressor 2.5 mg iv given as ordered prn for rate greater than 110.
--- NOTE | 2020-11-06 12:48 | NUR ---
Nutrition follow-up: Pt NPO for Trach, PEG placement today Labs reviewed Pulmocare @ 50 ml/hr with proteinex, 30 ml per day Wt: 352# RDN will reassess pt 11/07/20
--- NOTE | 2020-11-06 15:09 | NUR ---
PATIENT EYES OPEN THIS AM, BUT DID NOT OBEY COMMANDS. TRACH AND PEG PLACE PER DR. TOBIN, DR. ZAPATA ASSIST WITH TRACH PLACEMENT. PATIENT TOLERATED WELL. VECURONIUM IV GIVEN PER DR. TOBIN ORDERS PRIOR TO TRACH PLACEMENT. MINIMAL BLEEDING. DRESSINGS DRY AND INTACT. PEG CLAMPED AT THIS TIME. SCD ON LOWER LEGS. HEAD OF BED STILL FLAT. HEEL PROTECTORS IN PLACE WITH HEELS BRDIGE ON PILLOW. MONITOR ATRIAL FIB UNCONTROLLED. CARDIZEM GTT ORDER AT 10 MG HOUR. DIPRIVAN INCREASED TO 15 MCG/KG/MIN TO KEEP PATIENT RELAXED WITH TRACH. ZAVALETA CATH PATENT.
--- NOTE | 2020-11-06 18:23 | MORECARE ---
CASE MANAGEMENT DISCHARGE SUMMARY PATIENT: CITLALI LOPEZ UNIT: [id number] ADM DATE: 10/21/20 AGE: 65 : 57 SEX: F ROOM/BED: D[facility] AUTHOR: FELICITY,DOC PHYSICIAN: REFERRING PHYSICIAN: HARPER ROCA MD DATE OF SERVICE: 11/06/20 Case Management Discharge Planning Summary COMMENTS ENTERED DATE: 11/06/20 18:15 CT COMMENT TYPE: Discharge Planning REVIEWER: Noemi Alba LATE ENTRY FOR 09:45. CM CALLED AND SPOKE WITH PATIENT'S DAUGHTER, WES, ABOUT LTACH PLACEMENT. WES ASKED CM TO SPEAK WITH PATIENT'S [id number], JEM [phone], ABOUT [facility] FOR LTACH. CM CALLED AND SPOKE WITH [facility] [place]. JERAMY COMPLETED AND SENT CERTIFIED MAIL, RETURN RECIEPT REQUESTED TO JEM. CM CALLED AND SPOKE WITH [place] [facility] [place]. FAXED RECORDS REQUESTED. WILL REQUIRE INSURANCE AUTHORIZATION. CM ANTICIPATES POSSIBLE AUTH BY TUESDAY. DCP REVIEW SUMMARY ANTICIPATED D/C DATE: EXPECTED LOS : CASE STATUS: DCP Initiated INITIAL REVIEW: 10/21/2020 INITIAL REVIEWER: Noemi Alba FINAL DISCHARGE DISPOSITION: : FINAL REVIEWER: FINAL REVIEW DATE: DCP Focus Questions & Answers QUESTION: ANSWER : PATIENT: CITLALI LOPEZ ENCOUNTER: [id number] MEDICAL RECORD#: [id number] ADMISSION DATE: 10/21/2020 DISCHARGE DATE: ATTENDING MD: HARPER RESENDIZ : AGE: 65 MARITAL STATUS: U DC PLAN ID: [id number] FACILITY: [facility] PRINTED ON: 11/06/20 18:23 CT All edits/amendments must be made on the electronic document DICTATION DATE: 11/06/201822 FAMILY DAY CARE WORKER: TALIA 11/06/201822 RPT#: [id number] DC DATE: STATUS: ADM IN [facility] [address] [place] [address] END OF REPORT
[2020-11-07] VITALS (24 sets, daily range): BP systolic 97–161; BP diastolic 55–94
[2020-11-07 05:39] LABS: HEMATOCRIT 26.2 % (36.0-48.0); HEMOGLOBIN 9.1 g/dL (12-16); MCHC 34.7 g/dL (31.0-37.0); MCV 89.3 fL (80.0-100.0); MEAN PLATELET VOLUME 7.5 fL (7.4-10.4); PLATELET COUNT 109 10x3/uL (130-400); RBC 2.93 10x6/uL (4.00-5.40); RDW 15.2 % (11.5-14.5)
[2020-11-07 05:44] LABS: WBC 2.6 10x3/uL (4.8-10.8)
[2020-11-07 06:18] LABS: ALBUMIN 1.6 g/dL (3.4-5.0); ALKALINE PHOSPHATASE 54 U/L (30-120); ALT (SGPT) 76 U/L (10-68); BILIRUBIN - TOTAL 1.36 mg/dL (0.2-1.3); CALC OSMOLALITY 271 mosm/kg (275-300); CALCIUM 7.7 mg/dL (8.5-10.1); CARBON DIOXIDE 31.8 mmol/L (21.0-32.0); CHLORIDE - SERUM 97 mmol/L (98-107); CREATININE - SERUM 0.3 mg/dL (0.6-1.3); GLUCOSE 107 mg/dL (74-106); POTASSIUM - SERUM 3.7 mmol/L (3.5-5.1); PROTEIN - SERUM 4.4 g/dL (6.4-8.2); SODIUM 133 mmol/L (136-145); UREA NITROGEN 28 mg/dL (7-18); eGFR NON AFRICAN AMERICAN > 90 mL/min (90-120)
--- NOTE | 2020-11-07 07:15 | NUR ---
REPORT RECEIVED. PT IS ON FRESH TRACH PROTOCOL. HAD PLACED 11/06/20. ON VENT. SETTINGS PER RT. PT HAS A RIGHT IJ CENTRAL LINE. SHE IS ON CARDIZEM, PROPOFOL, AND FENTANYL. SHE HAS A ZAVALETA IN PLACE. URINE IS PINK TINGED. VSS. WILL CONTINUE TO MONITOR.
--- NOTE | 2020-11-07 07:22 | NUR ---
Nutrition reassessment: Intubated, sedated with propofol @ 20 mcg/kg/min Trach/PEG tube placed at bedside 11/06/20 PEG tube clamped at this time Labs reviewed Ht: 5'8" Wt: 347# Estimated needs (based on AdjBW of 86 kg) are: 1870-1634 kcal (25-30 kcal/kg AdjBW) 85-102 g protein (1.0-1.2 gm/kg AdjBW) 0876-5177 ml fluid - or per MD Nutrition diagnosis: - Inadequate energy intake R/T recent PEG tube placement AEB pt curretly NPO with PEG tube clamped. Nutrition goals: - Meet at least 75% of estimated kcal/protein needs with TF - Stable dry wt with gradual wt decrease of ~2#/week - Meet est fluid needs without fluid overload Nutrition interventions: Change TF formula to Jevity 1.5 arnaud @ 25 ml/hr with increase to goal rate of 65 ml/hr. Flush with 125 ml H2O q 4 hours. Jevity 1.5 arnaud @ 65 ml/hr will provide: 2340 kcal, 100 gm protein, 1186 ml free H2O. Will discuss TF formula change with physician during team rounds. RDN will follow-up on pts progression toward nutrition goals in 2-4 days.
--- NOTE | 2020-11-07 09:11 | MORECARE ---
CASE MANAGEMENT DISCHARGE SUMMARY PATIENT: CITLALI LOPEZ UNIT: [id number] ADM DATE: 10/21/20 AGE: 65 : 59 SEX: F ROOM/BED: [facility] AUTHOR: FELICITY,DOC PHYSICIAN: REFERRING PHYSICIAN: HARPER ROCA MD DATE OF SERVICE: 11/07/20 Case Management Discharge Planning Summary COMMENTS ENTERED DATE: 11/07/20 9:08 CT COMMENT TYPE: Discharge Planning REVIEWER: Noemi Parth Received call from Lorenzo at [facility] stating she only received 20 of the 51 page fax. CM re-faxed records as requested. ENTERED DATE: 11/06/20 18:15 CT COMMENT TYPE: Discharge Planning REVIEWER: Noemi Alba LATE ENTRY FOR 09:45. CM CALLED AND SPOKE WITH PATIENT'S DAUGHTER, WES, ABOUT LTACH PLACEMENT. WES ASKED CM TO SPEAK WITH PATIENT'S [id number], JEM [phone], ABOUT [facility] FOR LTACH. CM CALLED AND SPOKE WITH JEM. [facility] IN [place]. JERAMY COMPLETED AND SENT CERTIFIED MAIL, RETURN RECIEPT REQUESTED TO JEM. CM CALLED AND SPOKE WITH LORENZO AT [facility] ABOUT REFERRAL. FAXED RECORDS REQUESTED. WILL REQUIRE INSURANCE AUTHORIZATION. CM ANTICIPATES POSSIBLE AUTH BY TUESDAY. DCP REVIEW SUMMARY ANTICIPATED D/C DATE: EXPECTED LOS : CASE STATUS: DCP Initiated INITIAL REVIEW: 10/21/2020 INITIAL REVIEWER: Noemi Alba FINAL DISCHARGE DISPOSITION: : FINAL REVIEWER: FINAL REVIEW DATE: HIP Focus Questions & Answers QUESTION: ANSWER : PATIENT: CTILALI LOPEZ ENCOUNTER: [id number] MEDICAL RECORD#: [id number] ADMISSION DATE: 10/21/2020 DISCHARGE DATE: ATTENDING MD: HARPER RESENDIZ : AGE: 65 MARITAL STATUS: U DC PLAN ID: [id number] FACILITY: [facility] PRINTED ON: 11/07/20 9:11 CT All edits/amendments must be made on the electronic document DICTATION DATE: 11/07/20910 BUTCHER SUPERVISOR: TALIA 11/07/20910 RPT#: [id number] DC DATE: STATUS: ADM IN [facility] [address] [place] [address] END OF REPORT
--- NOTE | 2020-11-07 09:26 | NUR ---
PT DAUGHTER CALLED AND UPDATED.
[2020-11-07 10:59] LABS: EOSINOPHILS 3 % (0-7); LYMPHOCYTES 21 % (15-50); MONOCYTES 5 % (2-11); NEUTROPHILS 70 % (40-80); PLATELET ESTIMATE DECREASED
--- NOTE | 2020-11-07 12:28 | NUR ---
TUBE FEEDING STARTED.
[2020-11-07 15:12] LABS: FUNGUS STAIN Final report (())
[2020-11-07 18:09] LABS: ACID FAST SMEAR Negative (()); AFB SPECIMEN PROCESSING Concentration (())
[2020-11-08] VITALS (25 sets, daily range): BP systolic 108–164; BP diastolic 61–96
[2020-11-08 06:28] LABS: INR 1.28 (0.85-1.17); PROTIME 14.8 SECONDS (11.6-15.0)
[2020-11-08 06:29] LABS: D-DIMER-QUANTITATIVE 0.55 ug/mLFEU (0.20-0.54)
[2020-11-08 07:32] LABS: ALKALINE PHOSPHATASE 72 U/L (30-120); ALT (SGPT) 81 U/L (10-68); BILIRUBIN - TOTAL 1.51 mg/dL (0.2-1.3); CALCIUM 8.1 mg/dL (8.5-10.1); CARBON DIOXIDE 32.9 mmol/L (21.0-32.0); CHLORIDE - SERUM 95 mmol/L (98-107); FERRITIN 229 ng/mL (3-244); LDH 284 U/L (81-234); POTASSIUM - SERUM 3.4 mmol/L (3.5-5.1); PROTEIN - SERUM 5.3 g/dL (6.4-8.2); SODIUM 134 mmol/L (136-145); UREA NITROGEN 32 mg/dL (7-18)
[2020-11-08 07:42] LABS: CALC OSMOLALITY 277 mosm/kg (275-300); CREATININE - SERUM 0.4 mg/dL (0.6-1.3); GLUCOSE 156 mg/dL (74-106); eGFR NON AFRICAN AMERICAN > 90 mL/min (90-120)
--- NOTE | 2020-11-08 10:11 | NUR ---
PATIENTS EYES OPEN, DOES NOT FOLLOW WITH EYES. DOES NOT OBEY COMMANDS. TRACH TO VENT DRESSING DRY AND INTACT. NO DRAINAGE OR BLEEDING FROM SITE. PEG SITE DRESSING DRY AND INTACT. MONITOR ATRIAL FIB RATE CONTROLLED. RIJ CENTRAL LINE DRESSING DRY AND INTACT INFUSING WITH DIPRIVAN, FENTANYL CARDIZEM AND NS. ZAVALETA CATH PATENT. NO DISTRESS NOTED. SUCTION PER ETT MODERATE AMOUNT NIELSEN SECRETIONS. NEW TUBE FEEDING TUBING PLACED.JEVITY AT 35ML HOUR INFUSING PER PEG.
[2020-11-08 12:11] LABS: BASOPHILS 0.2 % (0-2); EOSINOPHILS 0.4 % (0-7); HEMOGLOBIN 10.3 g/dL (12-16); LYMPHOCYTES 3.7 % (15-50); MCH 30.9 pg (26.0-34.0); MCHC 34.3 g/dL (31.0-37.0); MEAN PLATELET VOLUME 6.9 fL (7.4-10.4); MONOCYTES 7.1 % (2-11); NEUTROPHILS 88.6 % (40-80); RBC 3.34 10x6/uL (4.00-5.40); RDW 14.9 % (11.5-14.5)
[2020-11-08 12:13] LABS: PLATELET COUNT 132 10x3/uL (130-400); WBC 4.8 10x3/uL (4.8-10.8)
--- NOTE | 2020-11-08 18:06 | NUR ---
DIPRIVAN DISCONTINUED. HIBCLENS BATH GIVEN WITH LINEN CHANGE. MEDIPLEX ON COCCYX DRY AND INTACT. EYES OPEN, WILL NODES TO YES AND NO QUESTIONS. TOLERATED CPAP TRIAL FOR 2 HOURS TODAY. PEG SITE AND TRACH WITHOUT BLEEDING OR DRIANAGE. CLEAN DRESSINGS APPLIED. PEG INFUSING WITH JEVITY, RATE INCREASED TO 45 ML HOUR. NO RESIDUAL. ZAVALETA CATH PATENT. RIJ TRIPLE LUMEN INFUSING FENTANYL AT 150 MCG/H. CARDIZEM AT 10 MG HOUR. NS KVO. SCD ON LOWER LEGS. HEELS BRIDGE ON PILLOW. HEAD OF BED ELEVATED. MONITOR ATRIAL FIB.
[2020-11-09] VITALS (26 sets, daily range): BP systolic 102–145; BP diastolic 61–86
[2020-11-09 03:27] LABS: BASOPHILS 0.2 % (0-2); EOSINOPHILS 0.2 % (0-7); HEMATOCRIT 34.5 % (36.0-48.0); HEMOGLOBIN 11.7 g/dL (12-16); LYMPHOCYTES 3.2 % (15-50); MCH 30.5 pg (26.0-34.0); MCHC 33.9 g/dL (31.0-37.0); MCV 90.2 fL (80.0-100.0); MEAN PLATELET VOLUME 6.7 fL (7.4-10.4); NEUTROPHILS 87.4 % (40-80); RBC 3.82 10x6/uL (4.00-5.40)
[2020-11-09 03:32] LABS: PLATELET COUNT 189 10x3/uL (130-400); WBC 7.9 10x3/uL (4.8-10.8)
[2020-11-09 03:46] LABS: ALBUMIN 2.2 g/dL (3.4-5.0); ALKALINE PHOSPHATASE 109 U/L (30-120); ALT (SGPT) 99 U/L (10-68); BILIRUBIN - TOTAL 2.52 mg/dL (0.2-1.3); CALC OSMOLALITY 283 mosm/kg (275-300); CALCIUM 8.4 mg/dL (8.5-10.1); CARBON DIOXIDE 32.4 mmol/L (21.0-32.0); CHLORIDE - SERUM 98 mmol/L (98-107); CREATININE - SERUM 0.4 mg/dL (0.6-1.3); GLUCOSE 132 mg/dL (74-106); POTASSIUM - SERUM 3.8 mmol/L (3.5-5.1); PROTEIN - SERUM 5.4 g/dL (6.4-8.2); SODIUM 137 mmol/L (136-145); UREA NITROGEN 34 mg/dL (7-18); eGFR NON AFRICAN AMERICAN > 90 mL/min (90-120)
--- NOTE | 2020-11-09 18:41 | NUR ---
CPAP TRIAL IN PROGRESS. TOLERATING FAIR. TOLERATED CPAP TRAIL THIS MORNING FAIR. WILL NODES TO QUESTIONS AT TIMES. MAKES EYE CONTACT. CAN NOT LIFT ARMS, OR MOVE EXTREMITITES. LIQUID BROWN BM PERICARE DONE. MEDIPLEX REMOVED. SMALL LESS THAN DIME SIZE PURPLE AREA NOTED. NO OTHER SKIN BREAK DOWN NOTED. CARDIZEM GTT INCREASED TO 15 MG TODAY FOR HEART RATE GREATER THAN 120. LOPPRESSOR GIVEN TWICE FOR HEART RATE GREATER THAN 120. URINE DARK RAMY COLOR. MONITOR UNCONTROLLED ATRIAL FIB MOST OF DAY. FENTANYL CONTINUES AT 150 MCG/H PER RIJ. DRESSING DRY AND INTACT. HEAD OF BED ELEVATED. SCD ON LOWER LEGS, HEELS BRIDGE ON PILLOW.
[2020-11-10] VITALS (27 sets, daily range): BP systolic 34–119; BP diastolic 20–103
[2020-11-10 05:48] LABS: ALBUMIN 1.9 g/dL (3.4-5.0); BILIRUBIN - TOTAL 3.85 mg/dL (0.2-1.3); CALCIUM 8.4 mg/dL (8.5-10.1); CARBON DIOXIDE 28.7 mmol/L (21.0-32.0); PROTEIN - SERUM 5.2 g/dL (6.4-8.2)
[2020-11-10 05:53] LABS: BASOPHILS 0.3 % (0-2); EOSINOPHILS 0.1 % (0-7); HEMATOCRIT 39.7 % (36.0-48.0); HEMOGLOBIN 13.1 g/dL (12-16); MCH 30.5 pg (26.0-34.0); MCHC 33.1 g/dL (31.0-37.0); MCV 92.1 fL (80.0-100.0); MEAN PLATELET VOLUME 7.8 fL (7.4-10.4); MONOCYTES 8.5 % (2-11); NEUTROPHILS 87.1 % (40-80); PLATELET COUNT 214 10x3/uL (130-400); RBC 4.31 10x6/uL (4.00-5.40); WBC 9.2 10x3/uL (4.8-10.8)
[2020-11-10 06:08] LABS: ANION GAP 15.2 mmol/L (8-16); CREATININE - SERUM 0.9 mg/dL (0.6-1.3); POTASSIUM - SERUM 4.9 mmol/L (3.5-5.1)
--- NOTE | 2020-11-10 09:35 | MORECARE ---
CASE MANAGEMENT DISCHARGE SUMMARY PATIENT: CITLALI LOPEZ UNIT: [id number] ADM DATE: 10/21/20 AGE: 65 : 59 SEX: F ROOM[facility]BED: [facility] AUTHOR: HOSEA BLEVINS PHYSICIAN: REFERRING PHYSICIAN: HARPER ROCA MD DATE OF SERVICE: 11/10/20 Case Management Discharge Planning Summary COMMENTS ENTERED DATE: 11/10/20 9:29 CT COMMENT TYPE: Discharge Planning REVIEWER: Marina Weber UPDATED CLINICALS FAXED TO [facility] [place] ENTERED DATE: 11/07/20 9:08 CT COMMENT TYPE: Discharge Planning REVIEWER: Noemi Alba Received call from Lorenzo at [facility] stating she only received 20 of the 51 page fax. CM re-faxed records as requested. ENTERED DATE: 11/06/20 18:15 CT COMMENT TYPE: Discharge Planning REVIEWER: Noemi Alba LATE ENTRY FOR 09:45. CM CALLED AND SPOKE WITH PATIENT'S DAUGHTER, WES, ABOUT LTACH PLACEMENT. WES ASKED CM TO SPEAK WITH PATIENT'S [id number], JEM [phone], ABOUT [facility] FOR LTACH. CM CALLED AND SPOKE WITH JEM. [facility] IN [place]. JERAMY COMPLETED AND SENT CERTIFIED MAIL, RETURN RECIEPT REQUESTED TO JEM. DASH CALLED AND SPOKE WITH LORENZO AT [facility] [place] ABOUT REFERRAL. FAXED RECORDS REQUESTED. WILL REQUIRE INSURANCE AUTHORIZATION. CM ANTICIPATES POSSIBLE AUTH BY TUESDAY. DCP REVIEW SUMMARY ANTICIPATED D/C DATE: EXPECTED LOS : CASE STATUS: DCP Initiated INITIAL REVIEW: 10/21/2020 INITIAL REVIEWER: Noemi Alba FINAL DISCHARGE DISPOSITION: : FINAL REVIEWER: FINAL REVIEW DATE: DCP Focus Questions & Answers QUESTION: ANSWER : PATIENT: CITLALI LOPEZ ENCOUNTER: [id number] MEDICAL RECORD#: [id number] ADMISSION DATE: 10/21/2020 DISCHARGE DATE: ATTENDING MD: HARPER RESENDIZ : AGE: 65 MARITAL STATUS: U DC PLAN ID: [id number] FACILITY: [facility] PRINTED ON: 11/10/20 9:35 CT All edits/amendments must be made on the electronic document DICTATION DATE: 11/10/20934 ICE PLANT OPERATOR: TALIA 11/10/20934 RPT#: [id number] DC DATE: STATUS: ADM IN [facility] [address] [place] [address] END OF REPORT
[2020-11-10 11:09] LABS: BASOPHILS 1.2 % (0-2); EOSINOPHILS 0.2 % (0-7); HEMATOCRIT 32.3 % (36.0-48.0); LYMPHOCYTES 21.3 % (15-50); MCH 30.1 pg (26.0-34.0); MCHC 31.5 g/dL (31.0-37.0); MEAN PLATELET VOLUME 7.6 fL (7.4-10.4); MONOCYTES 4.4 % (2-11); NEUTROPHILS 72.9 % (40-80); RDW 16.9 % (11.5-14.5); WBC 9.1 10x3/uL (4.8-10.8)
[2020-11-10 11:15] LABS: CALCIUM 7.2 mg/dL (8.5-10.1)
[2020-11-10 11:16] LABS: ANION GAP 22.3 mmol/L (8-16); CARBON DIOXIDE 21.3 mmol/L (21.0-32.0); CREATININE - SERUM 1.5 mg/dL (0.6-1.3)
[2020-11-10 11:18] LABS: POTASSIUM - SERUM 6.6 mmol/L (3.5-5.1)
[2020-11-10 11:42] LABS: HEMOGLOBIN 10.2 g/dL (12-16); MCV 95.5 fL (80.0-100.0); PLATELET COUNT 121 10x3/uL (130-400); RBC 3.39 10x6/uL (4.00-5.40)
--- NOTE | 2020-11-10 12:27 | NUR ---
FIRST CODE THIS AM STARTED AT 1020 [address] SEE CODE SHEET DR. TRAN HERE AND IN CHARGE OF CODE AT THIS POINT. ER ARRIVED AND HELP NEEDED. PATIENT CONTINUED TO HAS CAROTID PULSE WITH MOTTLING IN LEGS AND ARMS/HANDS AND UPPER CHEST. FAMILY CALLED AND UPDATED ON EVENTS HAPPENING AND WANT TO CONTINUE.
--- NOTE | 2020-11-10 12:58 | NUR ---
1150 SECOND CODE STARTED AND DR. TRAN HERE WELL, SEE CODE SHEET FOR EVENTS. DR. GARCIA NOTIFIED AND WILL START A EPI DRIP TO SEE IF THIS HELPS WITH THE PATIENT VITALS. PATIENT IS MAXED OUT OF EPI DRIP AND LEVOPHED DRIP AND ON 100 PERCENTS OXYGEN. ELDEST SON NAOMI LOPEZ CALLED AND NOTIFIED OF NEW EVENTS AND EXPLAINED THE EVENTS AND HAVE MADE PATIENT A DNR. DR. TRAN NOTIFIED AND ORDER PLACED.
--- NOTE | 2020-11-10 14:15 | NUR ---
PATIENT CLEANED UP FOR FAMILY AND UPON FINISHING BATH PATIENT DAUGHTER AT BEDSIDE BEFORE PATIENT AND DR. TRAN NOTIFIED.
--- NOTE | 2020-11-10 16:31 | MORECARE ---
CASE MANAGEMENT DISCHARGE SUMMARY PATIENT: CITLALI LOPEZ UNIT: [id number] ADM DATE: 10/21/20 AGE: 65 : 59 SEX: F [facility] AUTHOR: HOSEA BLEVINS PHYSICIAN: REFERRING PHYSICIAN: HARPER ROCA MD DATE OF SERVICE: 11/10/20 Case Management Discharge Planning Summary COMMENTS ENTERED DATE: 11/10/20 9:29 CT COMMENT TYPE: Discharge Planning REVIEWER: Marina Weber UPDATED CLINICALS FAXED TO [facility] [place] ENTERED DATE: 11/07/20 9:08 CT COMMENT TYPE: Discharge Planning REVIEWER: Noemi Alba Received call from Lorenzo at [facility] stating she only received 20 of the 51 page fax. CM re-faxed records as requested. ENTERED DATE: 11/06/20 18:15 CT COMMENT TYPE: Discharge Planning REVIEWER: Noemi Alba LATE ENTRY FOR 09:45. CM CALLED AND SPOKE WITH PATIENT'S DAUGHTER, WES, ABOUT LTACH PLACEMENT. WES ASKED CM TO SPEAK WITH PATIENT'S ARTKMNOO-[id number]-[id number], JEM [phone], ABOUT [facility] FOR LTACH. CM CALLED AND SPOKE WITH JEM. [facility] IN [place]. JERAMY COMPLETED AND SENT CERTIFIED MAIL, RETURN RECIEPT REQUESTED TO JEM. DASH CALLED AND SPOKE WITH LORENZO AT [facility] [place] ABOUT REFERRAL. FAXED RECORDS REQUESTED. WILL REQUIRE INSURANCE AUTHORIZATION. CM ANTICIPATES POSSIBLE AUTH BY TUESDAY. DCP REVIEW SUMMARY ANTICIPATED D/C DATE: EXPECTED LOS : CASE STATUS: DCP Initiated INITIAL REVIEW: 10/21/2020 INITIAL REVIEWER: Noemi Alba FINAL DISCHARGE DISPOSITION: : FINAL REVIEWER: FINAL REVIEW DATE: DCP Focus Questions & Answers QUESTION: ANSWER : PATIENT: CITLALI LOPEZ ENCOUNTER: [id number] MEDICAL RECORD#: [id number] ADMISSION DATE: 10/21/2020 DISCHARGE DATE: 11/10/2020 ATTENDING MD: HARPER RESENDIZ : AGE: 65 MARITAL STATUS: U DC PLAN ID: [id number] FACILITY: [facility] PRINTED ON: 11/10/20 16:31 CT All edits/amendments must be made on the electronic document DICTATION DATE: 11/10/20 163 CAUSTIC PURIFICATION OPERATOR: TALIA 11/10/20 163 RPT#: [id number] DC DATE:11/10/20 STATUS: DIS IN [facility] [address] [place] [address] END OF REPORT
--- NOTE | 2020-11-10 18:21 | NUR ---
HOME HERE TO GET PATIENT AND COPY OF FACE SHEET AND COPY CERT GIVEN.
--- NOTE | 2020-11-12 19:39 | OP ---
PATIENT NAME: CITLALI LOPEZ MEDICAL RECORD: [id number] LOCATION:[facility] [id number] ADMISSION DATE:10/21/20 SURGEON: EDDIE TOBIN MD DATE OF OPERATION: 11/06/2020 PREOPERATIVE DIAGNOSES: 1. Acute respiratory failure, on the ventilator. 2. Pneumonia. 3. Atrial fibrillation. 4. Morbid obesity. 5. Chronic anticoagulation use. POSTOPERATIVE DIAGNOSES: 1. Acute respiratory failure, on the ventilator. 2. Pneumonia. 3. Atrial fibrillation. 4. Morbid obesity. 5. Chronic anticoagulation use. PROCEDURE: 1. 20-Canadian PEG tube placement with EGD. 2. 8-Canadian percutaneous tracheostomy tube placement. SURGEON: Eddie Tobin MD COSURGEON: Dr. Overton. REPORT OF OPERATION: The patient was currently on the ventilator and sedated. An Olympus endoscope was advanced through the mouth and the esophagus. We insufflated the stomach and found an area to house out PEG tube on the body or antrum. The stomach wall appeared to be inflamed with some small ulcerations visible. The abdomen was prepped and draped in sterile fashion. A skin incision was made with an 11 blade in the left subcostal region and an Angiocath needle was brought through the abdominal wall into the gastric lumen. As the wire was advanced through this Angiocath, it was grasped with an Endo snare. We then pulled this wire through the patient's mouth and esophagus. We then affixed the PEG tube to the wire, and the wire and PEG tube were pulled through the mouth and esophagus and out through the abdominal wall until it rested at 6 cm at the skin. We then reinserted the gastroscope and could see there was no sign of any bleeding internally. At this point, the scope and insufflation were then removed. We then approached the patient's trachea. Dr. Overton assisted with this portion of the procedure. He performed a bronchoscopy with bronchioalveolar lavage. There was some sputum present in the right main stem bronchus. The indwelling endotracheal tube was then pulled back under direct visualization. A skin incision was made on the inferior aspect of the neck and an Angiocath needle was brought through the incision through a space between the second and third intercostal ring under direct visualization. A wire was advanced through the Angiocath and the Angiocath was removed. We then placed a small white dilator over the wire followed by the white Rhino dilator. We then inserted the 8-Canadian tracheostomy and removed the indwelling devices. The tracheostomy was inflated to 10 cc of air. We were then reinserted the bronchoscope and there was some blood clot present in the lung, which was evacuated. There were no signs of any active bleeding at the conclusion of the case. A total of 4 sutures were used to stitch the tracheostomy to the skin and this was done with 3-0 Prolenes. OPERATIVE REPORT [id number] CITLALI LOPEZ COMPLICATIONS: None. CONDITION: Stable. ANESTHESIA: General endotracheal. BLOOD LOSS: 30 mL. TRANSINT:[id number] Voice Confirmation ID: [id number] DOCUMENT ID: [id number] EDDIE TOBIN MD at 1937 CC: [id number] DICTATION DATE: 11/06/20 1218 STEERSMAN: 11/06/20 1235 DIS IN 11/10/20 [id number] [place] [address]
== END 2020-11-10 14:15 | DRG 4 ==
LOC: D.ICU 16:40
PROVIDERS: Family Medicine; Internal Medicine Pulmonary Disease; Radiology Vascular & Interventional Radiology; ADMIT Emergency Medicine; ATTEND Emergency Medicine
PROC: 5A1955Z Respiratory Ventilation, Greater than 96 Consecutive Hours (ICD-10-PCS; 2020-10-21)
PROC: 0W9930Z Drainage of Right Pleural Cavity with Drainage Device, Percutaneous Approach (ICD-10-PCS; principal; 2020-10-22)
PROC: 0B113F4 Bypass Trachea to Cutaneous with Tracheostomy Device, Percutaneous Approach (ICD-10-PCS; 2020-11-06)
PROC: 0DH63UZ Insertion of Feeding Device into Stomach, Percutaneous Approach (ICD-10-PCS; 2020-11-06)
PROC: 0B9M8ZZ Drainage of Bilateral Lungs, Via Natural or Artificial Opening Endoscopic (ICD-10-PCS; 2020-11-07)
DX: U07.1 COVID-19 (principal); J80 Acute respiratory distress syndrome; J12.82 Pneumonia due to coronavirus disease 2019; G93.41 Metabolic encephalopathy; J93.9 Pneumothorax, unspecified; N39.0 Urinary tract infection, site not specified; I48.20 Chronic atrial fibrillation, unspecified; Z68.43 Body mass index [BMI] 50.0-59.9, adult; J93.82 Other air leak; E87.1 Hypo-osmolality and hyponatremia; D61.818 Other pancytopenia; I10 Essential (primary) hypertension; E66.01 Morbid (severe) obesity due to excess calories; D64.9 Anemia, unspecified; E87.5 Hyperkalemia; Z79.01 Long term (current) use of anticoagulants; I08.1 Rheumatic disorders of both mitral and tricuspid valves; E09.8 Drug or chemical induced diabetes mellitus with unspecified complications; E88.09 Other disorders of plasma-protein metabolism, not elsewhere classified; D69.6 Thrombocytopenia, unspecified; E11.65 Type 2 diabetes mellitus with hyperglycemia; D70.9 Neutropenia, unspecified; I46.9 Cardiac arrest, cause unspecified; Z66 Do not resuscitate